=== PATIENT | male | born 1990 | race Caucasian/White ===

== ENCOUNTER 2016-08-18 09:49 | Inpatient (IN) | payer MEDICAID ==
[~2016-08-18] VITALS: Ht 172.7 cm; Wt 75.7 kg
[2016-08-18] MEDS ORDERED: NACL 0.9% 1,000 ML IV SCH (09:55)
[2016-08-18 10:08] VITALS: BP_SYST 96
[2016-08-18 10:43] LABS: HEMATOCRIT 31.6 % (36-54); HEMOGLOBIN 10.6 g/dL (14.0-18.0); MEAN CORPUSCULAR HEMOGLOBIN 29 pg (27-31); MEAN CORPUSCULAR HGB CONC 33 % (32-36); MEAN CORPUSCULAR VOLUME 88 fL (79.0-98.0); PLATELET COUNT (AUTO) 227 K/uL (130-430); RED BLOOD CELL COUNT(AUTO) 3.59 MIL/uL (4.2-6.2); RED CELL DISTRIBUTION WIDTH 17.5 % (9.0-15.0)
[2016-08-18 10:47] LABS: WHITE BLOOD COUNT (AUTO) 13.4 K/uL (4.8-10.8)
[2016-08-18 10:55] LABS: CALCIUM 8.6 mg/dL (8.4-11.0); CREATININE 0.65 mg/dL (0.55-1.30); POTASSIUM 3.9 mmol/L (3.5-5.1)
[2016-08-18 11:00] LABS: ALBUMIN 2.9 g/dL (3.4-4.8); TOTAL BILIRUBIN 0.3 mg/dL (0.0-1.0); TOTAL PROTEIN, SERUM 7.9 g/dL (6.4-8.3)
[2016-08-18] MEDS ORDERED: LEVA1.25 INH (11:16)
[2016-08-18] MEDS ORDERED: CLID1CAP PO (11:23)
[2016-08-18] MEDS ORDERED: BUDE180A3 IH (11:23)
[2016-08-18] MEDS ORDERED: BACL20TA PO (11:23)
[2016-08-18] MEDS ORDERED: FAMO20TA8 GT (11:25)
[2016-08-18] MEDS ORDERED: ASPI-859 GT (11:25)
[2016-08-18 11:29] LABS: ATYPICAL LYMPHOCYTES % 3 % (0-0); BAND % (MANUAL) 17 % (0-6); BASOPHILS % (MANUAL) 1 % (0-2); EOSINOPHILS % (MANUAL) 2 % (0-7); LYMPHOCYTES % (MANUAL) 34 % (20-46); MONOCYTES % (MANUAL) 12 % (0-11)
[2016-08-18] MEDS ORDERED: DIVA500T7 GT (11:30)
[2016-08-18] MEDS ORDERED: LEVE750T4 GT (11:30)
[2016-08-18] MEDS ORDERED: MORP30TA59 GT (11:30)
[2016-08-18] MEDS ORDERED: SENN-153 GT (11:30)
[2016-08-18] MEDS ORDERED: [UNRECOGNIZED DRUG - CODE] GT (11:33)
[2016-08-18] MEDS ORDERED: MAGN400O4 GT (11:33)
[2016-08-18] MEDS ORDERED: LEVE500T13 GT (11:35)
[2016-08-18] MEDS ORDERED: LOVI40 SQ (11:41)
[2016-08-18] MEDS ORDERED: HYDR-1189 GT (11:41)
[2016-08-18 13:14] VITALS: BP_SYST 106
[2016-08-18] MEDS ORDERED: MORPHINE 2 MG/ML INJ. SYRINGE IVP PRN (15:00)
[2016-08-18] MEDS ORDERED: DOCUSATE SODIUM 100 MG/10 ML UDC GT PRN (15:00)
[2016-08-18] MEDS ORDERED: LORazepam 2 MG/ML VIAL IVP PRN (15:00)
[2016-08-18] MEDS ORDERED: ONDANSETRON HCL 4 MG/2 ML VIAL IVP PRN (15:00)
[2016-08-18] MEDS ORDERED: POTASSIUM CHLORIDE 20 MEQ/PKT PACKET GT PRN (15:00)
[2016-08-18] MEDS ORDERED: MAGNESIUM SULFATE 50 ML IV PRN (15:00)
[2016-08-18] MEDS ORDERED: ACETAMINOPHEN 650 MG/20.3 ML UDC GT PRN (15:00)
[2016-08-18 16:52] VITALS: BP_SYST 100
[2016-08-18] MEDS: HYDROcodone/ACETAMIN 5-325 MG TAB (NORCO/ VICODIN) GT SCH (17:34)
[2016-08-18 19:50] VITALS: BP_SYST 91
[2016-08-18] MEDS: COLISTIMETHATE SODIUM 75 MG in NS 50 ML IV SCH (20:42)
[2016-08-18] MEDS: BACLOFEN 10 MG TABLET GT SCH (20:43)
[2016-08-18] MEDS: levETIRAcetam 500 MG TABLET GT SCH (20:43)
[2016-08-18] MEDS: HEPARIN SODIUM,PORCINE 5000 UNITS/ML VIAL SUBCUT SCH (20:45)
[2016-08-18] MEDS ORDERED: ZOLPIDEM TARTRATE 5 MG TABLET GT PRN (21:00)
[2016-08-18] MEDS ORDERED: BUDESONIDE 180 MCG IH SCH (21:00)
[2016-08-18] MEDS: VALPROIC ACID ORAL SYRUP 250 MG/5 ML UDC GT SCH (21:02)
[2016-08-19 00:40] VITALS: BP_SYST 100
[2016-08-19] MEDS: HYDROcodone/ACETAMIN 5-325 MG TAB (NORCO/ VICODIN) GT SCH ×4 (00:45→17:38)
[2016-08-19 04:14] VITALS: BP_SYST 103
[2016-08-19 07:20] LABS: BASOPHILS % (AUTO) 0.2 % (0.0-2.0); EOSINOPHILS # (AUTO) 0.4 K/uL (0.0-0.4); EOSINOPHILS % (AUTO) 4.2 % (0.0-4.0); HEMATOCRIT 31.9 % (36-54); HEMOGLOBIN 10.7 g/dL (14.0-18.0); LYMPHOCYTES # (AUTO) 2.6 K/uL (1.0-5.5); LYMPHOCYTES % (AUTO) 30.7 % (20.5-51.5); MEAN CORPUSCULAR HEMOGLOBIN 30 pg (27-31); MEAN CORPUSCULAR HGB CONC 34 % (32-36); MEAN CORPUSCULAR VOLUME 88 fL (79.0-98.0); MONOCYTES # (AUTO) 0.7 K/uL (0.0-1.0); MONOCYTES % (AUTO) 7.8 % (1.7-9.3); NEUTROPHILS # (AUTO) 4.7 K/uL (1.8-7.7); NEUTROPHILS % (AUTO) 57.1 % (40.0-70.0); PLATELET COUNT (AUTO) 301 K/uL (130-430); RED BLOOD CELL COUNT(AUTO) 3.63 MIL/uL (4.2-6.2); RED CELL DISTRIBUTION WIDTH 17.2 % (9.0-15.0)
[2016-08-19 08:11] LABS: WHITE BLOOD COUNT (AUTO) 8.4 K/uL (4.8-10.8)
[2016-08-19 08:24] LABS: CALCIUM 8.8 mg/dL (8.4-11.0); CREATININE 0.62 mg/dL (0.55-1.30); POTASSIUM 4.4 mmol/L (3.5-5.1)
[2016-08-19] MEDS: FLUTICASONE FUROATE 100 MCG BLST.W.DEV INH SCH (09:00)
[2016-08-19 09:35] VITALS: BP_SYST 106
[2016-08-19] MEDS: VALPROIC ACID ORAL SYRUP 250 MG/5 ML UDC GT SCH ×2 (09:43→21:03)
[2016-08-19] MEDS: COLISTIMETHATE SODIUM 75 MG in NS 50 ML IV SCH ×2 (09:44→21:04)
[2016-08-19] MEDS: BACLOFEN 10 MG TABLET GT SCH ×2 (09:44→21:03)
[2016-08-19] MEDS: levETIRAcetam 500 MG TABLET GT SCH ×2 (09:45→21:03)
[2016-08-19] MEDS: PSYLLIUM HUSK 1 PKT PACKET GT SCH (09:45)
[2016-08-19] MEDS: FAMOTIDINE 20 MG TABLET GT SCH (09:45)
[2016-08-19] MEDS: HEPARIN SODIUM,PORCINE 5000 UNITS/ML VIAL SUBCUT SCH ×2 (09:47→21:05)
[2016-08-19] MEDS: ASPIRIN 81 MG TABLET(ECOTRIN) GT SCH (09:49)
[2016-08-19 11:36] VITALS: BP_SYST 102
[2016-08-19 15:44] VITALS: BP_SYST 91
[2016-08-19 21:13] VITALS: BP_SYST 111
[2016-08-20] VITALS (7 sets, daily range): BP systolic 99–119
[2016-08-20] MEDS: HYDROcodone/ACETAMIN 5-325 MG TAB (NORCO/ VICODIN) GT SCH ×4 (00:19→17:35)
[2016-08-20 07:12] LABS: BASOPHILS % (AUTO) 0.2 % (0.0-2.0); EOSINOPHILS # (AUTO) 0.2 K/uL (0.0-0.4); EOSINOPHILS % (AUTO) 2.3 % (0.0-4.0); HEMATOCRIT 31.9 % (36-54); HEMOGLOBIN 10.5 g/dL (14.0-18.0); LYMPHOCYTES # (AUTO) 1.7 K/uL (1.0-5.5); MEAN CORPUSCULAR HEMOGLOBIN 29 pg (27-31); MEAN CORPUSCULAR HGB CONC 33 % (32-36); MEAN CORPUSCULAR VOLUME 88 fL (79.0-98.0); MONOCYTES # (AUTO) 0.6 K/uL (0.0-1.0); MONOCYTES % (AUTO) 9.2 % (1.7-9.3); NEUTROPHILS # (AUTO) 4.4 K/uL (1.8-7.7); NEUTROPHILS % (AUTO) 64.3 % (40.0-70.0); PLATELET COUNT (AUTO) 296 K/uL (130-430); RED BLOOD CELL COUNT(AUTO) 3.62 MIL/uL (4.2-6.2); RED CELL DISTRIBUTION WIDTH 17.2 % (9.0-15.0); WHITE BLOOD COUNT (AUTO) 6.9 K/uL (4.8-10.8)
[2016-08-20 07:26] LABS: CALCIUM 8.9 mg/dL (8.4-11.0); CREATININE 0.54 mg/dL (0.55-1.30); POTASSIUM 4.6 mmol/L (3.5-5.1)
[2016-08-20] MEDS: FLUTICASONE FUROATE 100 MCG BLST.W.DEV INH SCH (09:00)
[2016-08-20] MEDS: HEPARIN SODIUM,PORCINE 5000 UNITS/ML VIAL SUBCUT SCH ×2 (09:03→22:01)
[2016-08-20] MEDS: levETIRAcetam 500 MG TABLET GT SCH ×2 (09:04→21:57)
[2016-08-20] MEDS: FAMOTIDINE 20 MG TABLET GT SCH (09:04)
[2016-08-20] MEDS: ASPIRIN 81 MG TABLET(ECOTRIN) GT SCH (09:04)
[2016-08-20] MEDS: BACLOFEN 10 MG TABLET GT SCH ×2 (09:04→21:57)
[2016-08-20] MEDS: PSYLLIUM HUSK 1 PKT PACKET GT SCH (09:04)
[2016-08-20] MEDS: VALPROIC ACID ORAL SYRUP 250 MG/5 ML UDC GT SCH ×2 (09:05→21:56)
[2016-08-20] MEDS: COLISTIMETHATE SODIUM 75 MG in NS 50 ML IV SCH ×2 (09:05→22:03)
[2016-08-21 03:52] VITALS: BP_SYST 113
[2016-08-21] MEDS: HYDROcodone/ACETAMIN 5-325 MG TAB (NORCO/ VICODIN) GT SCH ×4 (07:21→23:13)
[2016-08-21 07:33] LABS: BASOPHILS % (AUTO) 0.1 % (0.0-2.0); EOSINOPHILS # (AUTO) 0.2 K/uL (0.0-0.4); EOSINOPHILS % (AUTO) 1.9 % (0.0-4.0); HEMATOCRIT 30.9 % (36-54); HEMOGLOBIN 10.5 g/dL (14.0-18.0); LYMPHOCYTES # (AUTO) 2.8 K/uL (1.0-5.5); LYMPHOCYTES % (AUTO) 32.9 % (20.5-51.5); MEAN CORPUSCULAR HEMOGLOBIN 30 pg (27-31); MEAN CORPUSCULAR HGB CONC 34 % (32-36); MEAN CORPUSCULAR VOLUME 88 fL (79.0-98.0); MONOCYTES # (AUTO) 0.9 K/uL (0.0-1.0); MONOCYTES % (AUTO) 10.3 % (1.7-9.3); NEUTROPHILS # (AUTO) 4.6 K/uL (1.8-7.7); NEUTROPHILS % (AUTO) 54.8 % (40.0-70.0); PLATELET COUNT (AUTO) 311 K/uL (130-430); RED BLOOD CELL COUNT(AUTO) 3.49 MIL/uL (4.2-6.2); RED CELL DISTRIBUTION WIDTH 17.2 % (9.0-15.0); WHITE BLOOD COUNT (AUTO) 8.5 K/uL (4.8-10.8)
[2016-08-21 07:45] LABS: CALCIUM 8.9 mg/dL (8.4-11.0); CREATININE 0.64 mg/dL (0.55-1.30); POTASSIUM 4.1 mmol/L (3.5-5.1)
[2016-08-21 08:13] VITALS: BP_SYST 109
[2016-08-21] MEDS: FLUTICASONE FUROATE 100 MCG BLST.W.DEV INH SCH (09:00)
[2016-08-21] MEDS: PSYLLIUM HUSK 1 PKT PACKET GT SCH (09:30)
[2016-08-21] MEDS: COLISTIMETHATE SODIUM 75 MG in NS 50 ML IV SCH ×2 (09:30→21:40)
[2016-08-21] MEDS: FAMOTIDINE 20 MG TABLET GT SCH (09:31)
[2016-08-21] MEDS: VALPROIC ACID ORAL SYRUP 250 MG/5 ML UDC GT SCH ×2 (09:31→21:41)
[2016-08-21] MEDS: levETIRAcetam 500 MG TABLET GT SCH ×2 (09:31→21:40)
[2016-08-21] MEDS: BACLOFEN 10 MG TABLET GT SCH ×2 (09:31→21:39)
[2016-08-21] MEDS: ASPIRIN 81 MG TABLET(ECOTRIN) GT SCH (09:31)
[2016-08-21] MEDS: HEPARIN SODIUM,PORCINE 5000 UNITS/ML VIAL SUBCUT SCH ×2 (09:32→21:43)
[2016-08-21 12:05] VITALS: BP_SYST 106
[2016-08-21 16:21] VITALS: BP_SYST 112
[2016-08-21 20:00] VITALS: BP_SYST 103
[2016-08-22 00:15] VITALS: BP_SYST 111
[2016-08-22 05:05] VITALS: BP_SYST 109
[2016-08-22] MEDS: HYDROcodone/ACETAMIN 5-325 MG TAB (NORCO/ VICODIN) GT SCH ×4 (05:33→23:53)
[2016-08-22 07:06] LABS: BASOPHILS % (AUTO) 0.5 % (0.0-2.0); EOSINOPHILS # (AUTO) 0.2 K/uL (0.0-0.4); EOSINOPHILS % (AUTO) 1.7 % (0.0-4.0); HEMATOCRIT 32.3 % (36-54); HEMOGLOBIN 10.5 g/dL (14.0-18.0); LYMPHOCYTES % (AUTO) 42.2 % (20.5-51.5); MEAN CORPUSCULAR HEMOGLOBIN 29 pg (27-31); MEAN CORPUSCULAR HGB CONC 32 % (32-36); MEAN CORPUSCULAR VOLUME 89 fL (79.0-98.0); MONOCYTES # (AUTO) 0.9 K/uL (0.0-1.0); MONOCYTES % (AUTO) 9.2 % (1.7-9.3); NEUTROPHILS # (AUTO) 4.4 K/uL (1.8-7.7); NEUTROPHILS % (AUTO) 46.4 % (40.0-70.0); PLATELET COUNT (AUTO) 332 K/uL (130-430); RED BLOOD CELL COUNT(AUTO) 3.64 MIL/uL (4.2-6.2); RED CELL DISTRIBUTION WIDTH 17.7 % (9.0-15.0); WHITE BLOOD COUNT (AUTO) 9.5 K/uL (4.8-10.8)
[2016-08-22 07:18] LABS: CALCIUM 7.9 mg/dL (8.4-11.0); CREATININE 0.35 mg/dL (0.55-1.30); POTASSIUM 3.7 mmol/L (3.5-5.1)
[2016-08-22 08:39] VITALS: BP_SYST 115
[2016-08-22] MEDS: COLISTIMETHATE SODIUM 75 MG in NS 50 ML IV SCH ×2 (09:37→20:32)
[2016-08-22] MEDS: VALPROIC ACID ORAL SYRUP 250 MG/5 ML UDC GT SCH ×2 (10:49→20:30)
[2016-08-22] MEDS: BACLOFEN 10 MG TABLET GT SCH ×2 (10:50→20:30)
[2016-08-22] MEDS: FAMOTIDINE 20 MG TABLET GT SCH (10:50)
[2016-08-22] MEDS: levETIRAcetam 500 MG TABLET GT SCH ×2 (10:50→20:31)
[2016-08-22] MEDS: PSYLLIUM HUSK 1 PKT PACKET GT SCH (10:50)
[2016-08-22] MEDS: ASPIRIN 81 MG TABLET(ECOTRIN) GT SCH (10:50)
[2016-08-22] MEDS: HEPARIN SODIUM,PORCINE 5000 UNITS/ML VIAL SUBCUT SCH ×2 (10:52→20:35)
[2016-08-22 12:16] VITALS: BP_SYST 108
[2016-08-22 16:41] VITALS: BP_SYST 104
[2016-08-22 20:16] VITALS: BP_SYST 105
[2016-08-23 00:44] VITALS: BP_SYST 103
[2016-08-23 04:48] VITALS: BP_SYST 109
[2016-08-23] MEDS: HYDROcodone/ACETAMIN 5-325 MG TAB (NORCO/ VICODIN) GT SCH ×3 (05:47→18:06)
[2016-08-23 06:54] LABS: BASOPHILS # (AUTO) 0.1 K/uL (0.0-0.2); EOSINOPHILS # (AUTO) 0.2 K/uL (0.0-0.4); EOSINOPHILS % (AUTO) 2.7 % (0.0-4.0); HEMATOCRIT 30.8 % (36-54); HEMOGLOBIN 10.1 g/dL (14.0-18.0); LYMPHOCYTES # (AUTO) 3.2 K/uL (1.0-5.5); LYMPHOCYTES % (AUTO) 34.3 % (20.5-51.5); MEAN CORPUSCULAR HEMOGLOBIN 29 pg (27-31); MEAN CORPUSCULAR HGB CONC 33 % (32-36); MEAN CORPUSCULAR VOLUME 89 fL (79.0-98.0); MONOCYTES # (AUTO) 0.8 K/uL (0.0-1.0); MONOCYTES % (AUTO) 8.2 % (1.7-9.3); NEUTROPHILS # (AUTO) 4.9 K/uL (1.8-7.7); NEUTROPHILS % (AUTO) 53.8 % (40.0-70.0); PLATELET COUNT (AUTO) 308 K/uL (130-430); RED BLOOD CELL COUNT(AUTO) 3.45 MIL/uL (4.2-6.2); RED CELL DISTRIBUTION WIDTH 17.2 % (9.0-15.0); WHITE BLOOD COUNT (AUTO) 9.2 K/uL (4.8-10.8)
[2016-08-23 07:09] LABS: CALCIUM 8.8 mg/dL (8.4-11.0); CREATININE 0.63 mg/dL (0.55-1.30); POTASSIUM 4.2 mmol/L (3.5-5.1)
[2016-08-23] MEDS: VALPROIC ACID ORAL SYRUP 250 MG/5 ML UDC GT SCH ×2 (09:43→22:08)
[2016-08-23] MEDS: PSYLLIUM HUSK 1 PKT PACKET GT SCH (09:43)
[2016-08-23] MEDS: levETIRAcetam 500 MG TABLET GT SCH ×2 (09:43→22:07)
[2016-08-23] MEDS: BACLOFEN 10 MG TABLET GT SCH ×2 (09:43→22:07)
[2016-08-23] MEDS: ASPIRIN 81 MG TABLET(ECOTRIN) GT SCH (09:44)
[2016-08-23] MEDS: FAMOTIDINE 20 MG TABLET GT SCH (09:44)
[2016-08-23] MEDS: HEPARIN SODIUM,PORCINE 5000 UNITS/ML VIAL SUBCUT SCH ×2 (10:01→22:22)
[2016-08-23] MEDS: COLISTIMETHATE SODIUM 75 MG in NS 50 ML IV SCH ×2 (12:02→22:18)
[2016-08-23 12:05] VITALS: BP_SYST 115
[2016-08-23 12:07] VITALS: BP_SYST 115
[2016-08-23 16:53] VITALS: BP_SYST 107
[2016-08-23 20:15] VITALS: BP_SYST 107
[2016-08-24 00:19] VITALS: BP_SYST 128
[2016-08-24] MEDS: HYDROcodone/ACETAMIN 5-325 MG TAB (NORCO/ VICODIN) GT SCH ×4 (02:37→17:46)
[2016-08-24 04:12] VITALS: BP_SYST 111
[2016-08-24 07:26] LABS: BASOPHILS % (AUTO) 0.2 % (0.0-2.0); EOSINOPHILS # (AUTO) 0.2 K/uL (0.0-0.4); HEMATOCRIT 32.7 % (36-54); HEMOGLOBIN 10.6 g/dL (14.0-18.0); LYMPHOCYTES # (AUTO) 2.4 K/uL (1.0-5.5); LYMPHOCYTES % (AUTO) 23.7 % (20.5-51.5); MEAN CORPUSCULAR HEMOGLOBIN 29 pg (27-31); MEAN CORPUSCULAR HGB CONC 33 % (32-36); MEAN CORPUSCULAR VOLUME 90 fL (79.0-98.0); MONOCYTES % (AUTO) 9.3 % (1.7-9.3); NEUTROPHILS # (AUTO) 6.6 K/uL (1.8-7.7); NEUTROPHILS % (AUTO) 64.8 % (40.0-70.0); PLATELET COUNT (AUTO) 285 K/uL (130-430); RED BLOOD CELL COUNT(AUTO) 3.64 MIL/uL (4.2-6.2); RED CELL DISTRIBUTION WIDTH 17.3 % (9.0-15.0); WHITE BLOOD COUNT (AUTO) 10.3 K/uL (4.8-10.8)
[2016-08-24 07:34] LABS: CALCIUM 9.1 mg/dL (8.4-11.0); CREATININE 0.58 mg/dL (0.55-1.30); POTASSIUM 3.8 mmol/L (3.5-5.1)
[2016-08-24 07:58] VITALS: BP_SYST 102
[2016-08-24] MEDS: COLISTIMETHATE SODIUM 75 MG in NS 50 ML IV SCH ×2 (09:21→22:34)
[2016-08-24] MEDS: PSYLLIUM HUSK 1 PKT PACKET GT SCH (09:21)
[2016-08-24] MEDS: VALPROIC ACID ORAL SYRUP 250 MG/5 ML UDC GT SCH ×2 (09:21→22:33)
[2016-08-24] MEDS: BACLOFEN 10 MG TABLET GT SCH ×2 (09:22→22:35)
[2016-08-24] MEDS: FAMOTIDINE 20 MG TABLET GT SCH (09:22)
[2016-08-24] MEDS: levETIRAcetam 500 MG TABLET GT SCH ×2 (09:22→22:35)
[2016-08-24] MEDS: ASPIRIN 81 MG TABLET(ECOTRIN) GT SCH (09:22)
[2016-08-24] MEDS: HEPARIN SODIUM,PORCINE 5000 UNITS/ML VIAL SUBCUT SCH ×2 (09:42→21:00)
[2016-08-24 12:21] VITALS: BP_SYST 110
[2016-08-24 17:54] VITALS: BP_SYST 101
[2016-08-24 20:07] VITALS: BP_SYST 102
[2016-08-25] VITALS: BP_SYST 103
[2016-08-25] MEDS: HYDROcodone/ACETAMIN 5-325 MG TAB (NORCO/ VICODIN) GT SCH ×4 (00:47→17:27)
[2016-08-25 05:53] VITALS: BP_SYST 105
[2016-08-25] MEDS: PSYLLIUM HUSK 1 PKT PACKET GT SCH (09:18)
[2016-08-25] MEDS: FAMOTIDINE 20 MG TABLET GT SCH (09:18)
[2016-08-25] MEDS: ASPIRIN 81 MG TABLET(ECOTRIN) GT SCH (09:18)
[2016-08-25] MEDS: BACLOFEN 10 MG TABLET GT SCH ×2 (09:18→21:41)
[2016-08-25] MEDS: levETIRAcetam 500 MG TABLET GT SCH ×2 (09:19→21:41)
[2016-08-25] MEDS: VALPROIC ACID ORAL SYRUP 250 MG/5 ML UDC GT SCH ×2 (09:19→21:41)
[2016-08-25] MEDS: HEPARIN SODIUM,PORCINE 5000 UNITS/ML VIAL SUBCUT SCH ×2 (09:20→21:48)
[2016-08-25 12:18] VITALS: BP_SYST 103
[2016-08-25 17:10] VITALS: BP_SYST 101
[2016-08-25 19:44] VITALS: BP_SYST 98
[2016-08-25 23:31] VITALS: BP_SYST 105
[2016-08-26] MEDS: HYDROcodone/ACETAMIN 5-325 MG TAB (NORCO/ VICODIN) GT SCH ×4 (01:07→18:25)
[2016-08-26 04:08] VITALS: BP_SYST 106
[2016-08-26 08:00] VITALS: BP_SYST 115
[2016-08-26] MEDS: levETIRAcetam 500 MG TABLET GT SCH ×2 (08:45→21:31)
[2016-08-26] MEDS: BACLOFEN 10 MG TABLET GT SCH ×2 (08:45→21:31)
[2016-08-26] MEDS: ASPIRIN 81 MG TABLET(ECOTRIN) GT SCH (08:45)
[2016-08-26] MEDS: FAMOTIDINE 20 MG TABLET GT SCH (08:45)
[2016-08-26] MEDS: VALPROIC ACID ORAL SYRUP 250 MG/5 ML UDC GT SCH ×2 (08:45→21:32)
[2016-08-26] MEDS: PSYLLIUM HUSK 1 PKT PACKET GT SCH (08:46)
[2016-08-26] MEDS: HEPARIN SODIUM,PORCINE 5000 UNITS/ML VIAL SUBCUT SCH ×2 (08:47→21:33)
[2016-08-26 12:36] VITALS: BP_SYST 115
[2016-08-26 16:20] VITALS: BP_SYST 120
[2016-08-26 19:40] VITALS: BP_SYST 116
[2016-08-27 00:50] VITALS: BP_SYST 112
[2016-08-27 04:14] VITALS: BP_SYST 99
[2016-08-27] MEDS: HYDROcodone/ACETAMIN 5-325 MG TAB (NORCO/ VICODIN) GT SCH ×4 (05:52→20:08)
[2016-08-27] MEDS: levETIRAcetam 500 MG TABLET GT SCH ×2 (08:28→21:33)
[2016-08-27] MEDS: ASPIRIN 81 MG TABLET(ECOTRIN) GT SCH (08:28)
[2016-08-27] MEDS: BACLOFEN 10 MG TABLET GT SCH ×2 (08:29→21:33)
[2016-08-27] MEDS: PSYLLIUM HUSK 1 PKT PACKET GT SCH (08:29)
[2016-08-27] MEDS: FAMOTIDINE 20 MG TABLET GT SCH (08:29)
[2016-08-27] MEDS: VALPROIC ACID ORAL SYRUP 250 MG/5 ML UDC GT SCH ×2 (08:31→21:33)
[2016-08-27] MEDS: HEPARIN SODIUM,PORCINE 5000 UNITS/ML VIAL SUBCUT SCH ×2 (08:32→21:32)
[2016-08-27 12:00] VITALS: BP_SYST 100
[2016-08-27 16:00] VITALS: BP_SYST 107
[2016-08-27 19:45] VITALS: BP_SYST 114
[2016-08-28] MEDS: HYDROcodone/ACETAMIN 5-325 MG TAB (NORCO/ VICODIN) GT SCH
[2016-08-28 01:19] VITALS: BP_SYST 140
[2016-08-28 04:00] VITALS: BP_SYST 114
[2016-08-28 08:00] VITALS: BP_SYST 125
[2016-08-28] MEDS: levETIRAcetam 500 MG TABLET GT SCH ×2 (09:44→21:53)
[2016-08-28] MEDS: VALPROIC ACID ORAL SYRUP 250 MG/5 ML UDC GT SCH ×2 (09:44→21:54)
[2016-08-28] MEDS: FAMOTIDINE 20 MG TABLET GT SCH (09:45)
[2016-08-28] MEDS: ASPIRIN 81 MG TABLET(ECOTRIN) GT SCH (09:45)
[2016-08-28] MEDS: HEPARIN SODIUM,PORCINE 5000 UNITS/ML VIAL SUBCUT SCH ×2 (09:45→21:56)
[2016-08-28] MEDS: PSYLLIUM HUSK 1 PKT PACKET GT SCH (09:45)
[2016-08-28] MEDS: BACLOFEN 10 MG TABLET GT SCH ×2 (09:45→21:53)
[2016-08-28 13:52] VITALS: BP_SYST 115
[2016-08-28 16:04] VITALS: BP_SYST 104
[2016-08-28 20:00] VITALS: BP_SYST 121
[2016-08-28] MEDS: LevALBUTEROL HCL 1.25 MG/0.5 ML *CONC.* VIAL.NEB (XOPENEX CONC.) INH PRN (20:56)
[2016-08-28] MEDS: CLINDAMYCIN 600 MG in D5W 50 ML IV SCH (21:54)
[2016-08-29] VITALS (7 sets, daily range): BP systolic 106–120
[2016-08-29] MEDS: CLINDAMYCIN 600 MG in D5W 50 ML IV SCH ×3 (05:12→21:44)
[2016-08-29] MEDS: ASPIRIN 81 MG TABLET(ECOTRIN) GT SCH (08:37)
[2016-08-29] MEDS: BACLOFEN 10 MG TABLET GT SCH ×2 (08:37→20:01)
[2016-08-29] MEDS: PSYLLIUM HUSK 1 PKT PACKET GT SCH (08:37)
[2016-08-29] MEDS: FAMOTIDINE 20 MG TABLET GT SCH (08:38)
[2016-08-29] MEDS: levETIRAcetam 500 MG TABLET GT SCH ×2 (08:38→20:01)
[2016-08-29] MEDS: VALPROIC ACID ORAL SYRUP 250 MG/5 ML UDC GT SCH ×2 (08:38→20:02)
[2016-08-29] MEDS: HEPARIN SODIUM,PORCINE 5000 UNITS/ML VIAL SUBCUT SCH ×2 (08:39→22:03)
[2016-08-29] MEDS: LACTOBACILLUS RHAMNOSUS GG 1 CAP CAPSULE PO SCH (20:01)
[2016-08-30 03:36] VITALS: BP_SYST 110
[2016-08-30] MEDS: CLINDAMYCIN 600 MG in D5W 50 ML IV SCH ×3 (05:56→21:21)
[2016-08-30 08:00] VITALS: BP_SYST 112
[2016-08-30] MEDS: BACLOFEN 10 MG TABLET GT SCH ×2 (09:10→20:40)
[2016-08-30] MEDS: LACTOBACILLUS RHAMNOSUS GG 1 CAP CAPSULE PO SCH ×2 (09:10→20:35)
[2016-08-30] MEDS: FAMOTIDINE 20 MG TABLET GT SCH (09:11)
[2016-08-30] MEDS: levETIRAcetam 500 MG TABLET GT SCH ×2 (09:11→20:35)
[2016-08-30] MEDS: ASPIRIN 81 MG TABLET(ECOTRIN) GT SCH (09:11)
[2016-08-30] MEDS: PSYLLIUM HUSK 1 PKT PACKET GT SCH (09:11)
[2016-08-30] MEDS: HEPARIN SODIUM,PORCINE 5000 UNITS/ML VIAL SUBCUT SCH ×2 (09:12→20:34)
[2016-08-30] MEDS: VALPROIC ACID ORAL SYRUP 250 MG/5 ML UDC GT SCH ×2 (09:13→20:40)
[2016-08-30 12:15] VITALS: BP_SYST 136
[2016-08-30 17:07] VITALS: BP_SYST 110
[2016-08-30 19:55] VITALS: BP_SYST 123
[2016-08-31 01:17] VITALS: BP_SYST 109
[2016-08-31 04:17] VITALS: BP_SYST 121
[2016-08-31] MEDS: CLINDAMYCIN 600 MG in D5W 50 ML IV SCH ×3 (05:02→22:33)
[2016-08-31 08:00] VITALS: BP_SYST 117
[2016-08-31] MEDS: HEPARIN SODIUM,PORCINE 5000 UNITS/ML VIAL SUBCUT SCH ×2 (09:44→22:29)
[2016-08-31] MEDS: levETIRAcetam 500 MG TABLET GT SCH ×2 (09:45→22:27)
[2016-08-31] MEDS: ASPIRIN 81 MG TABLET(ECOTRIN) GT SCH (09:45)
[2016-08-31] MEDS: PSYLLIUM HUSK 1 PKT PACKET GT SCH (09:45)
[2016-08-31] MEDS: BACLOFEN 10 MG TABLET GT SCH ×2 (09:45→22:27)
[2016-08-31] MEDS: FAMOTIDINE 20 MG TABLET GT SCH (09:45)
[2016-08-31] MEDS: LACTOBACILLUS RHAMNOSUS GG 1 CAP CAPSULE PO SCH ×2 (09:45→22:27)
[2016-08-31] MEDS: VALPROIC ACID ORAL SYRUP 250 MG/5 ML UDC GT SCH ×2 (09:46→22:35)
[2016-08-31 14:10] VITALS: BP_SYST 118
[2016-08-31 15:59] VITALS: BP_SYST 109
[2016-08-31 20:05] VITALS: BP_SYST 107
[2016-09-01] VITALS (7 sets, daily range): BP systolic 106–129
[2016-09-01] MEDS: CLINDAMYCIN 600 MG in D5W 50 ML IV SCH ×3 (06:38→21:42)
[2016-09-01] MEDS: levETIRAcetam 500 MG TABLET GT SCH ×2 (10:21→21:43)
[2016-09-01] MEDS: LACTOBACILLUS RHAMNOSUS GG 1 CAP CAPSULE PO SCH ×2 (10:21→21:42)
[2016-09-01] MEDS: BACLOFEN 10 MG TABLET GT SCH ×2 (10:21→21:42)
[2016-09-01] MEDS: ASPIRIN 81 MG TABLET(ECOTRIN) GT SCH (10:21)
[2016-09-01] MEDS: PSYLLIUM HUSK 1 PKT PACKET GT SCH (10:22)
[2016-09-01] MEDS: VALPROIC ACID ORAL SYRUP 250 MG/5 ML UDC GT SCH ×2 (10:22→21:57)
[2016-09-01] MEDS: FAMOTIDINE 20 MG TABLET GT SCH (10:22)
[2016-09-01] MEDS: HEPARIN SODIUM,PORCINE 5000 UNITS/ML VIAL SUBCUT SCH ×2 (10:25→21:44)
[2016-09-02 03:58] VITALS: BP_SYST 113
[2016-09-02] MEDS: CLINDAMYCIN 600 MG in D5W 50 ML IV SCH ×3 (05:48→22:04)
[2016-09-02 08:00] VITALS: BP_SYST 102
[2016-09-02] MEDS: levETIRAcetam 500 MG TABLET GT SCH ×2 (09:51→20:46)
[2016-09-02] MEDS: ASPIRIN 81 MG TABLET(ECOTRIN) GT SCH (09:51)
[2016-09-02] MEDS: FAMOTIDINE 20 MG TABLET GT SCH (09:51)
[2016-09-02] MEDS: BACLOFEN 10 MG TABLET GT SCH ×2 (09:52→20:45)
[2016-09-02] MEDS: PSYLLIUM HUSK 1 PKT PACKET GT SCH (09:52)
[2016-09-02] MEDS: LACTOBACILLUS RHAMNOSUS GG 1 CAP CAPSULE PO SCH ×2 (09:52→20:45)
[2016-09-02] MEDS: HEPARIN SODIUM,PORCINE 5000 UNITS/ML VIAL SUBCUT SCH ×2 (09:55→20:47)
[2016-09-02] MEDS: VALPROIC ACID ORAL SYRUP 250 MG/5 ML UDC GT SCH ×2 (09:57→20:45)
[2016-09-02] MEDS ORDERED: DIPHENHYDRAMINE HCL 50 MG CAPSULE GT ONE (11:45)
[2016-09-02 12:58] VITALS: BP_SYST 116
[2016-09-02 16:02] VITALS: BP_SYST 120
[2016-09-02 19:20] VITALS: BP_SYST 123
[2016-09-03] VITALS (8 sets, daily range): BP systolic 104–126
[2016-09-03] MEDS: CLINDAMYCIN 600 MG in D5W 50 ML IV SCH ×3 (05:37→21:42)
[2016-09-03] MEDS: LevALBUTEROL HCL 1.25 MG/0.5 ML *CONC.* VIAL.NEB (XOPENEX CONC.) INH PRN (07:43)
[2016-09-03] MEDS: PSYLLIUM HUSK 1 PKT PACKET GT SCH (09:03)
[2016-09-03] MEDS: HEPARIN SODIUM,PORCINE 5000 UNITS/ML VIAL SUBCUT SCH ×2 (09:03→20:46)
[2016-09-03] MEDS: VALPROIC ACID ORAL SYRUP 250 MG/5 ML UDC GT SCH ×2 (09:03→20:30)
[2016-09-03] MEDS: ASPIRIN 81 MG TABLET(ECOTRIN) GT SCH (09:04)
[2016-09-03] MEDS: BACLOFEN 10 MG TABLET GT SCH ×2 (09:04→20:29)
[2016-09-03] MEDS: FAMOTIDINE 20 MG TABLET GT SCH (09:04)
[2016-09-03] MEDS: levETIRAcetam 500 MG TABLET GT SCH ×2 (09:04→20:30)
[2016-09-03] MEDS: LACTOBACILLUS RHAMNOSUS GG 1 CAP CAPSULE PO SCH (09:04)
[2016-09-04] VITALS (8 sets, daily range): BP systolic 115–138
[2016-09-04] MEDS: CLINDAMYCIN 600 MG in D5W 50 ML IV SCH (05:59)
[2016-09-04] MEDS: FAMOTIDINE 20 MG TABLET GT SCH (09:15)
[2016-09-04] MEDS: ASPIRIN 81 MG TABLET(ECOTRIN) GT SCH (09:15)
[2016-09-04] MEDS: PSYLLIUM HUSK 1 PKT PACKET GT SCH (09:15)
[2016-09-04] MEDS: BACLOFEN 10 MG TABLET GT SCH ×2 (09:16→21:43)
[2016-09-04] MEDS: levETIRAcetam 500 MG TABLET GT SCH ×2 (09:16→21:43)
[2016-09-04] MEDS: VALPROIC ACID ORAL SYRUP 250 MG/5 ML UDC GT SCH ×2 (09:16→21:44)
[2016-09-04] MEDS: HEPARIN SODIUM,PORCINE 5000 UNITS/ML VIAL SUBCUT SCH ×2 (09:17→21:47)
== END 2016-09-04 22:47 | DRG 710 ==
LOC: SED 09:49 → STU 11:46 → SMU 08-23 14:33
PROVIDERS: ADMIT General Practice; ATTEND General Practice
PROC: 5A1935Z Respiratory Ventilation, Less than 24 Consecutive Hours (ICD-10-PCS; 2016-08-27)
PROC: 0W960ZZ Drainage of Neck, Open Approach (ICD-10-PCS; principal; 2016-09-02)
DX: A41.9 Sepsis, unspecified organism (principal); G93.40 Encephalopathy, unspecified; G82.50 Quadriplegia, unspecified; J96.10 Chronic respiratory failure, unspecified whether with hypoxia or hypercapnia; E44.0 Moderate protein-calorie malnutrition; Z93.0 Tracheostomy status; R13.10 Dysphagia, unspecified; N39.0 Urinary tract infection, site not specified; D63.8 Anemia in other chronic diseases classified elsewhere; B96.5 Pseudomonas (aeruginosa) (mallei) (pseudomallei) as the cause of diseases classified elsewhere; G40.909 Epilepsy, unspecified, not intractable, without status epilepticus; N31.9 Neuromuscular dysfunction of bladder, unspecified; Z16.24 Resistance to multiple antibiotics; Z74.01 Bed confinement status; Z78.9 Other specified health status; Z93.1 Gastrostomy status; L02.11 Cutaneous abscess of neck; Z87.820 Personal history of traumatic brain injury; Z88.1 Allergy status to other antibiotic agents; Z68.25 Body mass index [BMI] 25.0-25.9, adult; E83.42 Hypomagnesemia; L02.13 Carbuncle of neck
CPT/HCPCS: 36415; 71010; 76536-TC; 80048; 80053; 82040-TC; 83605; 83735-TC; 84484; 85007; 85025; 85027; 87040-TC; 87070-TC; 87075-TC; 87081; 87186-TC; 93005; 94640; 94760; J0770; J1644; J3475; J3490; J7030; J7040; J7050; J7060; Q0163